=== PATIENT | female | born 1940 | race Caucasian/White ===

== ENCOUNTER 2016-09-24 07:04 | Day surgery (SDC) | payer MEDICARE, BC ==
[~2016-09-24 07:04] MED LIST: Acetaminophen TAB* 325 MG PO PRN; Buffered Lidocaine 1% SYR 3ML* 3 ML/SYR SYRINGE INTRADERM ONE
[2016-09-24] MEDS ORDERED: Midazolam* 1 MG/ML 2 ML VIAL (2 MG) ONE (07:27)
[2016-09-24] MEDS ORDERED: Phenylephrine 2.5% OPTH.SOL* 2 ML BTL ONE (08:13)
[2016-09-24] MEDS ORDERED: Lidocaine 2% EPI 1:200000 MPF* 20 ML VIAL ONE (08:13)
[2016-09-24] MEDS ORDERED: Povidone Iodine 5% OPTH* 30 ML BTL ONE (08:13)
[2016-09-24] MEDS ORDERED: Proparacaine 0.5% OPHTH.SOL* 15 ML BTL ONE (08:13)
[2016-09-24] MEDS ORDERED: acetaZOLAMIDE TAB* 250 MG ONE (08:13)
[2016-09-24] MEDS ORDERED: Lidocaine 1% MPF* 2 ML VIAL ONE (08:13)
[2016-09-24] MEDS ORDERED: Cyclopentolate 1% OPTH.SOL* 2 ML BTL ONE (08:13)
[2016-09-24] MEDS ORDERED: Flurbiprofen 0.03% OPTH.SOL* 2.5 ML BTL ONE (08:13)
[2016-09-24] MEDS ORDERED: Neomycin/Polymy/Dex OPTH.SUSP* MAXITROL 0.1% 5 ML ONE (08:13)
[2016-09-24 08:20] VITALS: BP 129/66
--- NOTE | 2016-09-24 10:57 | OP ---
OPERATIVE NOTE: DATE OF OPERATION: 09/24/16 DATE OF : 42 SURGEON: Tayo Sy M.D. PREOPERATIVE DIAGNOSIS: Cataract, right eye. POSTOPERATIVE DIAGNOSIS: Cataract, right eye. OPERATIVE PROCEDURE: Phacoemulsification, right eye with IOL. PROCEDURE: The patient was brought to the operating room after being given 1/2% Alcaine with epinep hrine drops in the preoperative area. The eye was prepped and draped in the usual sterile fashion. Sterile drape and eyelid speculum were placed. Again, topical 1/2% Alcaine with epinephrine was gi haile. A paracentesis incision was made at the 9 o'clock position with the No.75 blade. Clear cornea incision 2.2 x 2.2-mm was created at the 12 o'clock position starting at the anterior limbus using the 2.2-mm keratome. The anterior chamber was irrigated with 0.4 mL of 1% non-preservative intracam eral lidocaine and filled with DisCoVisc. A capsulorrhexis was completed using the cystotome and th e Utrata forceps. Hydrodissection was performed with balanced salt solution. The lens nucleus was r emoved with the Phacoemulsification handpiece without incident. Cortex was removed with the irrigat ion-aspiration handpiece. The capsular bag was re-inflated using DisCoVisc and an [id number] implant was inserted with the shooter. The irrigation-aspiration handpiece was used to remove all residual DisCoVisc. The eye was refilled with balanced salt solution and the wound checked and found to be watertight. Topical Maxitrol drops were given. [id number]/[facility] #: [id number]
== END 2016-09-24 08:25 | disposition home or self-care (01) ==
LOC: OREAST 07:04
PROVIDERS: ATTEND Specialist
DX: H25.811 Combined forms of age-related cataract, right eye (principal); H40.023 Open angle with borderline findings, high risk, bilateral
CPT/HCPCS: A9270-GY; J2250; V2632

== ENCOUNTER 2019-02-05 06:45 | Emergency (ER) | payer MEDICARE, BC ==
--- NOTE | 2019-02-05 07:41 | ED ---
Upper Extremity Pain - HPI Summary HPI Summary: This pt is a 79 y/o female, right hand dominant, [place] [facility] [place] left wrist pain s/p fall yesterday 02/04/19 at 2100. Pt reports her was placing something in the back of the car while pt was behind him when her lost his balance and fell backwards on patient. Pt broke her 's fall but caught her left wrist. Pt notes her left wrist looks deformed and has limited ROM. However she states sensation and circulation are fine. Denies any other injuries from her fall. Denies head strike or LOC. 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 PMHx fractured Right wrist 10 years ago while skating. - History of Current Complaint Chief Complaint: EDExtremityUpper Stated Complaint: FALL PER PT Hx Obtained From: Patient Mechanism Of Injury: Fall From A Standing Position Onset/Duration: Started Hours Ago, Still Present Timing: Lasting Hours Severity Currently: Severe - 11/17 Pain Location: Wrist - Left Character: Aching Aggravating Factor(s): Nothing Alleviating Factor(s): Nothing Associated Signs & Symptoms: Positive: Swelling. Negative: Fever, Chest Pain, Neck Pain, Nausea, Vomiting Related History: Dominant Hand Right - Allergies/Home Medications Allergies/Adverse Reactions: Allergies Allergy/AdvReac Type Severity Reaction Status Date / Time No Known Allergies Allergy Verified 02/05/19 06:49 PMH/Surg Hx/FS Hx/Imm Hx Musculoskeletal History: Reports: Hx Arthritis - HANDS, WRIST, NECK Sensory History: Reports: Hx Contacts or Glasses - GLASSES Denies: Hx Hearing Aid Opthamlomology History: Reports: Hx Contacts or Glasses - GLASSES Neurological History: Reports: Other Neuro Impairments/Disorders - RADICULOPATHY X 10 YEARS - Surgical History Surgery Procedure, Year, and Place: 2001-ENDOMETRIAL [id number]. 2013- RIGHT WRIST FRACTURE- [facility] Hx Anesthesia Reactions: No Infectious Disease History: No Infectious Disease History: Denies: Traveled Outside the [place] in Last 30 Days - Family History Known Family History: Positive: Diabetes - Father Family History: Father with glaucoma - Social History Alcohol Use: Weekly Alcohol Amount: wine every so often Substance Use Type: Reports: None Smoking Status (MU): Never Smoked Tobacco Review of Systems Negative: Fever, Chills Cardiovascular: Negative Respiratory: Negative Gastrointestinal: Negative Musculoskeletal: Other - POSITIVE: left wrist pain Positive: Decreased ROM - left wrist All Other Systems Reviewed And Are Negative: Yes Physical Exam - Summary Physical Exam Summary: Appearance: The patient is well-nourished in no acute distress and in no acute pain. Skin: The skin is warm and dry, and skin color reflects adequate perfusion. HEENT: The head is normocephalic and atraumatic. The pupils are equal and reactive. The conjunctivae are clear and without drainage. Nares are patent and without drainage. Mouth reveals moist mucous membranes, and the throat is without erythema and exudate. The external ears are intact. The ear canals are patent and without drainage. The tympanic membranes are intact. Neck: The neck is supple with full range of motion and non-tender. There are no carotid bruits. There is no neck vein distension. Respiratory: Chest is non-tender. Lungs are clear to auscultation and breath sounds are symmetrical and equal. Cardiovascular: Heart is regular rate and rhythm. There is no murmur or rub auscultated. There is no peripheral edema and pulses are symmetrical and equal. Musculoskeletal: There is no back tenderness noted. Left wrist swelling and tenderness. Distal neurovascular motor are intact. Neurological: Patient is alert and oriented to person, place and time. The patient has symmetrical motor strength in all four extremities. Cranial nerves are grossly intact. Deep tendon reflexes are symmetrical and equal in all four extremities. Psychiatric: The patient has an appropriate affect and does not exhibit any anxiety or depression. Triage Information Reviewed: Yes Vital Signs On Initial Exam: Initial Vitals Temp Pulse Resp BP Pulse Ox 97.2 F 62 16 156/96 97 02/05/19 06:46 02/05/19 06:46 02/05/19 06:46 02/05/19 06:46 02/05/19 06:46 Vital Signs Reviewed: Yes Procedures - Splinting Left Upper Extremity Hand-Made Type: orthoglass Splint: volar Pre-Proc Neuro Vasc Exam: normal Post-Proc Neuro Vasc Exam: normal Splint Applied by Provider: Caleb Oreilly Diagnostics - Vital Signs Vital Signs Temp Pulse Resp BP Pulse Ox 02/05/19 06:46 97.2 F 62 16 156/96 97 - Laboratory Lab Statement: Any lab studies that have been ordered have been reviewed, and results considered in the medical decision making process. - Radiology Left wrist XR Radiology Interpretation Completed By: Radiologist Summary of Radiographic Findings: IMPRESSION: 1. Osteopenia. 2. Fracture of the distal radius with articular extension. 3. Osteoarthritis. Dr. Oreilly has reviewed this report. Course/Dx - Course Course Of Treatment: Dr. Kelly fell last evening helping her . She believes that she was not injured except for her left wrist. That hurt immediately with some deformity. It interfered with her sleep during the night. She denies any paresthesias or weakness although her hand is a little stiffer this morning than it was last night. On exam she was found to be distally intact with neurovascular motor. X-ray revealed a mildly angulated and displaced for early distal radius. It's difficult to say for sure but it may be intra-articular. Her ring was removed and she was placed in a volar splint. I spoke with Dr. Reyes and he will follow her up on Thursday. - Diagnoses Provider Diagnoses: Fracture of left distal radius - Physician Notifications Discussed Care of Patient With: Armen Manning Time Discussed With Above Provider: 07:43 Instructed by Provider To: Other - Discussed case wtih Dr. Manning, orthopedist, who recommends follow up in his office on Thursday02/08/19. Discharge ED - Sign-Out/Discharge Documenting (check all that apply): Patient Departure - Discharge home Patient Received Moderate/Deep Sedation with Procedure: No - Discharge Plan Condition: Stable Disposition: HOME Patient Education Materials: Wrist Fracture in Adults (ED) Referrals: Marybeth Knowles MD [Primary Care Provider] - Armen Manning MD [Medical Doctor] - (Follow up on 02/08/19.) Additional Instructions: Follow up with Dr. Manning, orthopedist, on Thursday02/08/19. RETURN TO THE ED FOR ANY WORSENING OR NEW SYMPTOMS. - Billing Disposition and Condition Condition: STABLE Disposition: Home - Attestation Statements Document Initiated by Scribe: Yes Documenting Scribe: Monika Sarabia Provider For Whom Claire is Documenting (Include Credential): Caleb Oreilly MD Scribe Attestation: Monika Owens, scribed for Caleb Oreilly MD on 02/05/19 at 1153. Scribe Documentation Reviewed: Yes Provider Attestation: The documentation as recorded by the Monika reeves accurately reflects the service I personally performed and the decisions made by me, Caleb Oreilly MD Status of Scribe Document: Viewed
[2019-02-05 08:28] VITALS: BP 146/80
== END 2019-02-05 08:27 | disposition home or self-care (01) ==
LOC: ED 06:45
DX: S52.592A Other fractures of lower end of left radius, initial encounter for closed fracture (principal); W18.39XA Other fall on same level, initial encounter; Y92.9 Unspecified place or not applicable; M19.032 Primary osteoarthritis, left wrist
CPT/HCPCS: 99282

== ENCOUNTER 2023-03-24 06:39 | Observation (INO) ==
[~2023-03-24 06:39] MED LIST changes: -Acetaminophen TAB* 325 MG PO PRN; -Buffered Lidocaine 1% SYR 3ML* 3 ML/SYR SYRINGE INTRADERM ONE; +Buffered Lidocaine 1% SYRIN 1 ml INTRADERM ONE; +Lactated Ringers 1000 ml BAG 1,000 ML IV SCH
[2023-03-24] MEDS ORDERED: Tranexamic Acid 1 GM/100ML BAG 2,000 MG/200 ML BAG IV ONE (06:59)
[2023-03-24] MEDS ORDERED: ceFAZolin 2 GM in NS PREMIX 2 GM/100 ML BAG IVPB ONE (06:59)
[2023-03-24 07:22] LABS: Rapid COVID-19 Molecular Undetected (Undetected)
[2023-03-24] MEDS ORDERED: Phenylephrine IV 10 MG/ML 1 ml VIAL ONE (08:08)
[2023-03-24] MEDS ORDERED: Lidocaine 2% PF 5 ML VIAL ONE (08:08)
[2023-03-24] MEDS ORDERED: Ondansetron 4 mg VIAL 2 MG/ML 2 ml VIAL IV PRN ×2 (08:16→10:41)
[2023-03-24] MEDS ORDERED: HYDROmorphone 1 MG/1 ML SYRINGE IV PRN (08:16)
[2023-03-24] MEDS ORDERED: Naloxone 0.4 mg VIAL 0.4 mg/ml 1 ml VIAL IV PRN (08:16)
[2023-03-24] MEDS ORDERED: fentaNYL 100 mcg/2 ml 50 MCG/ML VIAL IV PRN (08:16)
[2023-03-24] MEDS ORDERED: Acetaminophen IV 1 GM/100ML 1,000 MG/100 ML BAG IV PRN (08:16)
[2023-03-24] MEDS ORDERED: ROPIVACAINE 5 MG/ML 30 ML BTL (0.5%) ONE (08:54)
[2023-03-24] MEDS ORDERED: Midazolam 2 mg/2 ml VIAL 1 mg/ml 2 ml VIAL (2 mg) ONE (09:36)
[2023-03-24] MEDS ORDERED: fentaNYL 100 mcg/2 ml 50 MCG/ML VIAL ONE (09:36)
[2023-03-24] MEDS ORDERED: Propofol 10 MG/ML 20 ML BTL ONE (10:19)
[2023-03-24] MEDS ORDERED: Glycopyrrolate IV 0.2 MG/ML 1 ML VIAL ONE ×2 (10:36→10:38)
[2023-03-24] MEDS ORDERED: Lactulose 30 ml UDC PO PRN (10:41)
[2023-03-24] MEDS ORDERED: Morphine 2 MG/ML SYRINGE IV PRN (10:41)
[2023-03-24] MEDS ORDERED: Magnesium Hydroxide LIQ 30 ML UDC PO PRN (10:41)
[2023-03-24] MEDS ORDERED: Ondansetron ODT 4 mg TAB 4 MG TAB PO PRN (10:41)
[2023-03-24] MEDS ORDERED: Lactated Ringers 1000 ml BAG 1,000 ML IV SCH (11:00)
[2023-03-24] MEDS ORDERED: Dexamethasone IV 4 MG/ML VIAL 1 ml VIAL ONE (11:04)
[2023-03-24] MEDS ORDERED: Ondansetron 4 mg VIAL 2 MG/ML 2 ml VIAL ONE (11:04)
[2023-03-24] MEDS ORDERED: Acetaminophen IV 1 GM/100ML 1,000 MG/100 ML BAG IV ONE (11:04)
[2023-03-24] MEDS ORDERED: Sodium Chloride 0.9% 20 ML ONE (11:47)
[2023-03-24] MEDS: ceFAZolin 1 GM ADVAN 1 GM in NS 0.9% 50 ML 50 ML IVPB SCH (18:07)
[2023-03-24] MEDS: Magnesium Hydroxide LIQ 30 ML UDC PO SCH (20:05)
[2023-03-25] MEDS: ceFAZolin 1 GM ADVAN 1 GM in NS 0.9% 50 ML 50 ML IVPB SCH ×2 (02:37→09:41)
[2023-03-25 07:02] VITALS: BP 104/61
[2023-03-25 07:02] LABS: Hematocrit 32.9 % (35-45); Hemoglobin 11.2 g/dL (11.5-14.3); Mean Platelet Volume 9.4 fL (7.5-11.2); Platelet Count 266 10^3/uL (150-450)
[2023-03-25 07:16] LABS: Calcium 8.9 mg/dL (8.6-10.3); Creatinine, Serum 0.71 mg/dL (0.51-0.95); eGFR CKD-EPI 84.8 (>60)
[2023-03-25] MEDS: Magnesium Hydroxide LIQ 30 ML UDC PO SCH (07:43)
[2023-03-25] MEDS ORDERED: Vitamin THERAPEUTIC TAB PO SCH (09:00)
== END 2023-03-25 11:15 | disposition home or self-care (01) ==
LOC: OR 06:39 → SSU 06:39
PROVIDERS: ADMIT Orthopaedic Surgery Adult Reconstructive Orthopaedic Surgery; ATTEND Orthopaedic Surgery Adult Reconstructive Orthopaedic Surgery